=== PATIENT | female | born 2000 | race Caucasian/White ===

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

== ENCOUNTER 2021-06-01 12:20 | Day surgery (SDC) | payer OTHER ==
[~2021-06-01] VITALS: Ht 157.5 cm; Wt 60.8 kg
[~2021-06-01 12:20] MED LIST: LIDOCAINE 2% 100MG/5ML SDV (FOR ANES.) As Ordered ONE; NORG1TAB4 PO; NS 1,000 ML IV ONE; OMEP40CA5 PO; birth control tablet PO; propofoL 200 MG/20 ML VIAL As Ordered ONE
[2021-06-01] MEDS ORDERED: fentaNYL 100 MCG/2 ML INJECTION As Ordered ONE (14:15)
[2021-06-01] MEDS ORDERED: ONDANSETRON 4MG/2ML VIAL As Ordered ONE (14:20)
[2021-06-01] MEDS ORDERED: propofoL 200 MG/20 ML VIAL As Ordered ONE (14:32)
[2021-06-01 15:00] VITALS: BP 113/77
== END 2021-06-01 15:12 | disposition home or self-care (01) ==
LOC: M OPP 12:20
PROVIDERS: ATTEND Internal Medicine Gastroenterology
DX: K29.70 Gastritis, unspecified, without bleeding (principal); R11.11 Vomiting without nausea; R12 Heartburn
CPT/HCPCS: 43239; 88305; J2405; J3010

== ENCOUNTER 2023-06-16 15:09 | Emergency (ER) | payer OTHER, SELFPAY ==
[~2023-06-16] VITALS: Ht 157.5 cm; Wt 70.1 kg
[~2023-06-16 15:09] MED LIST changes: -LIDOCAINE 2% 100MG/5ML SDV (FOR ANES.) As Ordered ONE; -NORG1TAB4 PO; +NORG1TAB40 PO; -NS 1,000 ML IV ONE; -propofoL 200 MG/20 ML VIAL As Ordered ONE
[2023-06-16] MEDS ORDERED: NS 1,000 ML IV ONE ×3 (15:50→19:00)
[2023-06-16] MEDS ORDERED: ACETAMINOPHEN 500 MG TAB PO ONE (15:50)
[2023-06-16 16:20] LABS: BASO % 0.3 % (0.0-1.0); EOS % 0.3 % (0.0-3.0); HEMATOCRIT 35.2 % (36.0-47.0); LYMPH # 0.8 10^3/uL (1.5-5.0); LYMPH % 6.3 % (24.0-44.0); MEAN CORPUSCULAR HEMOGLOBIN 30.3 pg (27.0-33.0); MEAN CORPUSCULAR HGB CONC 34.1 g/dl (32.0-36.5); MEAN CORPUSCULAR VOLUME 88.9 fl (80.0-96.0); MONO # 0.7 10^3/uL (0.0-0.8); MONO % 5.6 % (2.0-8.0); NEUTROPHILS # 10.7 10^3/uL (1.5-8.5); NEUTROPHILS % 87.3 % (36.0-66.0); PLATELET COUNT, AUTOMATED 327 10^3/uL (150-450); RED BLOOD COUNT 3.96 10^6/uL (4.00-5.40); WHITE BLOOD COUNT 12.3 10^3/uL (4.0-10.0)
[2023-06-16] MEDS ORDERED: KETOROLAC 30 MG/ML 1ML VIAL IV ONE (17:00)
[2023-06-16] MEDS ORDERED: cefTRIAXone SOD 1 GM in D5W MINI-BAG PLUS 50 ML IV ONE (17:00)
[2023-06-16] MEDS ORDERED: CEFD300C41 PO (19:56)
[2023-06-16] MEDS ORDERED: PYRI1TAB5 PO (19:56)
[2023-06-16 20:10] VITALS: BP 135/80; TEMP 98.8
[2023-06-16 20:15] VITALS: O2SAT 99
[2023-06-17] MEDS ORDERED: FLUT50SP17 NAS SAD (18:26)
[2023-06-17] MEDS ORDERED: ACET-897 PO (18:28)
[2023-06-17] MEDS ORDERED: CEFD300C41 PO (18:32)
[2023-06-17] MEDS ORDERED: PYRI1TAB5 PO (18:34)
== END 2023-06-16 20:19 | disposition home or self-care (01) ==
LOC: M ED 15:09
DX: N10 Acute pyelonephritis (principal); B96.20 Unspecified Escherichia coli [E. coli] as the cause of diseases classified elsewhere; Z79.3 Long term (current) use of hormonal contraceptives
CPT/HCPCS: 76775; 80047; 81001; 83605; 84702; 85025; 87040; 87088; 87186; 96361; 96365; 96375; 99284; J0696; J1885

== ENCOUNTER 2023-06-17 14:44 | Inpatient (IN) | payer OTHER ==
[~2023-06-17] VITALS: Ht 162.6 cm; Wt 71.8 kg
[~2023-06-17 14:44] MED LIST changes: +CEFD300C41 PO; +PYRI1TAB5 PO
[2023-06-17] MEDS ORDERED: ACETAMINOPHEN 500 MG TAB PO ONE (15:10)
[2023-06-17 17:13] LABS: BASO # 0.1 10^3/uL (0.0-0.2); BASO % 0.2 % (0.0-1.0); HEMATOCRIT 32.8 % (36.0-47.0); HEMOGLOBIN 11.5 g/dl (12.0-15.5); LYMPH # 0.7 10^3/uL (1.5-5.0); LYMPH % 2.8 % (24.0-44.0); MEAN CORPUSCULAR HEMOGLOBIN 31.3 pg (27.0-33.0); MEAN CORPUSCULAR HGB CONC 35.1 g/dl (32.0-36.5); MEAN CORPUSCULAR VOLUME 89.1 fl (80.0-96.0); MONO # 1.5 10^3/uL (0.0-0.8); MONO % 5.6 % (2.0-8.0); NEUTROPHILS # 23.5 10^3/uL (1.5-8.5); NEUTROPHILS % 90.4 % (36.0-66.0); PLATELET COUNT, AUTOMATED 265 10^3/uL (150-450); RED BLOOD COUNT 3.68 10^6/uL (4.00-5.40)
[2023-06-17] MEDS ORDERED: NS 1,910 ML in IV 1 EA IV ONE (17:25)
[2023-06-17] MEDS ORDERED: MEROPENEM INJ 1 GM in IV 1 EA IV ONE (17:30)
[2023-06-17] MEDS ORDERED: LevoFLOXacin IV 750 MG in IV 1 EA IV ONE (17:30)
[2023-06-17] MEDS ORDERED: ONDANSETRON 4MG 2ML VIAL IV ONE (17:35)
[2023-06-17] MEDS ORDERED: MED REC IN PROGRESS XX SCH (17:40)
[2023-06-17 17:46] LABS: BLOOD UREA NITROGEN 9 MG/DL (9-23); CALCIUM LEVEL 8.1 MG/DL (8.5-10.1); CARBON DIOXIDE LEVEL 25 MMOL/L (20-31); CHLORIDE LEVEL 106 MMOL/L (98-107); CREATININE FOR GFR 0.73 MG/DL (0.55-1.30); GLOMERULAR FILTRATION RATE > 60.0 (>60); GLUCOSE, FASTING 100 MG/DL (60-100); POTASSIUM SERUM 3.6 MMOL/L (3.5-5.1); SODIUM LEVEL 138 MMOL/L (136-145)
[2023-06-17] MEDS ORDERED: ISOVUE-370 76% 100ML VIAL As Ordered ONE (17:48)
[2023-06-17] MEDS ORDERED: FLUT50SP17 NAS SAD (18:26)
[2023-06-17] MEDS ORDERED: ACET-897 PO (18:28)
[2023-06-17] MEDS ORDERED: CEFD300C41 PO (18:32)
[2023-06-17] MEDS ORDERED: PYRI1TAB5 PO (18:34)
[2023-06-17] MEDS ORDERED: HOME MED LIST COMPLETE! XX SCH (18:45)
[2023-06-17] MEDS ORDERED: ONDANSETRON 4MG 2ML VIAL IV PRN (19:20)
[2023-06-17 21:25] VITALS: BP 104/71; TEMP 97.9; O2SAT 98
[2023-06-17] MEDS: LR 1,000 ML IV SCH (21:34)
[2023-06-17] MEDS: PHENAZOPYRIDINE 100 MG TAB PO SCH (21:46)
[2023-06-17] MEDS: ACETAMINOPHEN TAB 650MG DOSE (2X325MG) PO PRN (23:45)
[2023-06-18] VITALS (9 sets, daily range): BP systolic 101–128; BP diastolic 64–90; TEMP 99–101.1; O2SAT 96–98
[2023-06-18] MEDS ORDERED: CIPROFLOXACIN 400 MG in IV 1 EA IV SCH ×2
[2023-06-18 06:19] LABS: HEMATOCRIT 30.6 % (36.0-47.0); HEMOGLOBIN 10.5 g/dl (12.0-15.5); MEAN CORPUSCULAR HGB CONC 34.3 g/dl (32.0-36.5); MEAN CORPUSCULAR VOLUME 90.3 fl (80.0-96.0); PLATELET COUNT, AUTOMATED 217 10^3/uL (150-450); RED BLOOD COUNT 3.39 10^6/uL (4.00-5.40); WHITE BLOOD COUNT 22.3 10^3/uL (4.0-10.0)
[2023-06-18 06:42] LABS: BLOOD UREA NITROGEN 8 MG/DL (9-23); CALCIUM LEVEL 7.6 MG/DL (8.5-10.1); CARBON DIOXIDE LEVEL 24 MMOL/L (20-31); CHLORIDE LEVEL 108 MMOL/L (98-107); GLOMERULAR FILTRATION RATE > 60.0 (>60); GLUCOSE, FASTING 93 MG/DL (60-100); MAGNESIUM LEVEL 1.7 MG/DL (1.8-2.4); POTASSIUM SERUM 3.6 MMOL/L (3.5-5.1); SODIUM LEVEL 139 MMOL/L (136-145)
[2023-06-18] MEDS: LR 1,000 ML IV SCH (09:15)
[2023-06-18] MEDS: KETOROLAC 30 MG/ML 1ML VIAL IV PRN (09:16)
[2023-06-18] MEDS: PHENAZOPYRIDINE 100 MG TAB PO SCH ×3 (09:16→19:57)
[2023-06-18] MEDS ORDERED: IBUPROFEN 600MG TAB PO PRN (11:25)
[2023-06-18] MEDS: MAG SULF 1GM/100ML (MAG RUN) 1 GM in IV 1 EA IV SCH ×2 (11:46→12:52)
[2023-06-18] MEDS: cefTRIAXone SOD 2 GM in D5W MINI-BAG PLUS 50 ML IV SCH (13:55)
[2023-06-18] MEDS: ACETAMINOPHEN TAB 650MG DOSE (2X325MG) PO PRN (15:05)
[2023-06-19] MEDS: ACETAMINOPHEN TAB 650MG DOSE (2X325MG) PO PRN (02:30)
[2023-06-19 02:33] VITALS: TEMP 100.9
[2023-06-19 03:30] VITALS: TEMP 100.5
[2023-06-19 05:41] VITALS: BP 127/85; TEMP 98.8; O2SAT 96
[2023-06-19 06:24] LABS: BASO % 0.2 % (0.0-1.0); EOS # 0.1 10^3/uL (0.0-0.5); EOS % 0.4 % (0.0-3.0); HEMATOCRIT 29.3 % (36.0-47.0); LYMPH # 1.4 10^3/uL (1.5-5.0); LYMPH % 8.5 % (24.0-44.0); MEAN CORPUSCULAR HEMOGLOBIN 30.6 pg (27.0-33.0); MEAN CORPUSCULAR HGB CONC 34.1 g/dl (32.0-36.5); MEAN CORPUSCULAR VOLUME 89.6 fl (80.0-96.0); MONO % 5.9 % (2.0-8.0); NEUTROPHILS # 13.7 10^3/uL (1.5-8.5); NEUTROPHILS % 84.4 % (36.0-66.0); PLATELET COUNT, AUTOMATED 271 10^3/uL (150-450); RED BLOOD COUNT 3.27 10^6/uL (4.00-5.40); WHITE BLOOD COUNT 16.2 10^3/uL (4.0-10.0)
[2023-06-19 06:53] LABS: BLOOD UREA NITROGEN 9 MG/DL (9-23); CALCIUM LEVEL 7.4 MG/DL (8.5-10.1); CARBON DIOXIDE LEVEL 24 MMOL/L (20-31); CHLORIDE LEVEL 107 MMOL/L (98-107); CREATININE FOR GFR 0.63 MG/DL (0.55-1.30); GLOMERULAR FILTRATION RATE > 60.0 (>60); GLUCOSE, FASTING 80 MG/DL (60-100); MAGNESIUM LEVEL 1.8 MG/DL (1.8-2.4); POTASSIUM SERUM 3.5 MMOL/L (3.5-5.1); SODIUM LEVEL 140 MMOL/L (136-145)
[2023-06-19] MEDS: PHENAZOPYRIDINE 100 MG TAB PO SCH (09:38)
[2023-06-19] MEDS: KETOROLAC 30 MG/ML 1ML VIAL IV PRN (09:39)
[2023-06-19] MEDS: cefTRIAXone SOD 2 GM in D5W MINI-BAG PLUS 50 ML IV SCH (12:37)
== END 2023-06-19 13:30 | disposition home or self-care (01) | DRG 872 ==
LOC: M ED 14:44 → M ED INP 19:17 → M MSPAV 21:25
PROVIDERS: ADMIT Family Medicine; ATTEND Internal Medicine Nephrology
DX: A41.9 Sepsis, unspecified organism (principal); N10 Acute pyelonephritis; Z79.899 Other long term (current) drug therapy; B96.20 Unspecified Escherichia coli [E. coli] as the cause of diseases classified elsewhere